=== PATIENT | male | born 1955 | race Caucasian/White ===

== ENCOUNTER 2021-12-13 17:51 | Outpatient (REF) | payer MEDICARE, OTHER, SELFPAY ==
[2021-12-13 18:30] LABS: Basophils Absolute Auto 0.04 K/uL (0.00-0.30); Basophils Percent Auto 0.6 % (0.0-3.0); Eosinophils Absolute Auto 0.13 K/uL (0.00-0.50); Eosinophils Percent Auto 2.1 % (0.0-7.0); Hematocrit 42.4 % (37.0-53.0); Hemoglobin* 14.3 gm/dL (13.5-17.5); Immature Granulocytes Abs Auto 0.02 K/uL (0.00-0.30); Lymphocytes Percent Auto 33.5 % (20-44); Mean Corpuscular HGB Conc 34 gm/dL (32-36); Mean Corpuscular Hemoglobin 32 pg (26-34); Mean Corpuscular Volume 95 fL (80-100); Monocytes Percent Auto 7.7 % (0.0-11.0); Neutrophils Absolute Auto 3.49 K/uL (1.7-7.0); Neutrophils Percent Auto 55.8 % (42.0-72.0); Platelet Count* 172 K/uL (140-440); Red Blood Count 4.47 m/uL (4.30-5.90); White Blood Count* 6.26 K/uL (4.50-11.00)
[2021-12-13 18:46] LABS: Slide Review Reflex No
[2021-12-13 18:48] LABS: Chloride* 109 mmol/L (96-114); Sodium* 140 mmol/L (135-149)
[2021-12-13 18:49] LABS: Potassium* 3.8 mmol/L (3.6-5.1)
[2021-12-13 18:51] LABS: Carbon Dioxide* 24 mmol/L (20-32); Creatinine* 0.8 mg/dL (0.5-1.5); Estimated Glomerular Filt Rate 98 ml/min
[2021-12-13 18:52] LABS: Blood Urea Nitrogen* 28 mg/dL (7-30); Calcium* 9.3 mg/dL (8.4-10.6); Glucose* 122 mg/dL (60-115)
[2021-12-13 18:57] LABS: C Reactive Protein* < 0.5 mg/dL (0.5-1.0)
[2021-12-13 19:19] LABS: Erythrocyte SedimentationRate* 7 mm/hr (2-15)
== END 2021-12-13 17:52 | disposition home or self-care (01) ==
LOC: LAB 17:51
PROVIDERS: PCP Family Medicine; Visit Provider Physician Assistant Surgical
DX: M25.471 Effusion, right ankle (principal)
CPT/HCPCS: 36415; 80048; 85025; 85651; 86140

== ENCOUNTER 2021-12-26 15:02 | Outpatient (CLI) | payer MEDICARE, OTHER, SELFPAY ==
[2021-12-26 17:28] LABS: Chloride* 102 mmol/L (96-114)
[2021-12-26 17:29] LABS: Potassium* 4.4 mmol/L (3.6-5.1); Sodium* 137 mmol/L (135-149)
[2021-12-26 17:31] LABS: Cholesterol* 244 mg/dL (90-199); Creatinine* 0.8 mg/dL (0.5-1.5); Estimated Glomerular Filt Rate 98 ml/min
[2021-12-26 17:32] LABS: Blood Urea Nitrogen* 22 mg/dL (7-30); Calcium* 10.1 mg/dL (8.4-10.6); Carbon Dioxide* 26 mmol/L (20-32); Glucose* 101 mg/dL (60-115); Triglycerides* 175 mg/dL (40-149)
[2021-12-26 17:33] LABS: HDL Cholesterol* 73 mg/dL (>=40); LDL Cholesterol Calculated 136 mg/dL (<100)
[2021-12-26 18:03] LABS: PSA Screen* 0.99 ng/mL (0.10-4.00)
== END 2021-12-26 15:03 | disposition home or self-care (01) ==
PROVIDERS: PCP Family Medicine; Visit Provider Family Medicine
DX: L40.9 Psoriasis, unspecified (principal); Z12.5 Encounter for screening for malignant neoplasm of prostate; Z13.6 Encounter for screening for cardiovascular disorders; Z13.1 Encounter for screening for diabetes mellitus
CPT/HCPCS: 80048; 80061; 84153

== ENCOUNTER 2022-01-17 14:15 | Outpatient (RCR) | payer MEDICARE, OTHER, SELFPAY ==
--- NOTE | 2022-01-11 15:24 | PT.OPEX ---
[facility] [place] [facility] PT [facility] Eval Start: 01/10/22 15:35 Freq: Status: Active Protocol: Document 01/10/22 15:36 CHRISTINA (Rec: 01/10/22 15:38 CHRISTINA [id number]) E-signed By Rommel Inman DPT, MS Physical Therapy Outpatient Evaluation Insurance Information Recert Due Date 04/10/22 Insurance Name Medicare B,Other; See Comments Insurance Information/Comments [employer] Medical Diagnosis Unspecified disorder of synovium and tendon, unspecified site; Unspecified injury of muscle and tendon of peroneal muscle group at lower leg level, initial encounter. Treating Diagnosis R ankle pain, decreased R ankle ROM, decreased R LE flexibility, imbalance, gait dysfunction, and R LE weakness Subjective Subjective Pt reports to PT with c/o chronic R lateral ankle pain, swelling and instability following multiple eversion sprains over the past 10-15 years. Experienced significant increase in posterior, lateral ankle swelling a few weeks upon waking after a [place] in [place] where he rolled his ankle. Describes sxs as sharp aching at posterior, lateral R ankle that was getting progressively worse before being fitted for an ankle brace. Receiving custom foot orthotics later this week . PA believes his flattening of his R arch is contributing. Describes years of multiple injuries playing high school and recreation football and basketball with multiple ankle sprains. Complex PSH of 3 L TKA revisions with minimal sensation in his L LE. AGGR factors: uneven surfaces, extended walking, stair climbing, carrying objects, walking without shoes. ALLEV factors: rest, ice, ankle brace. 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 Pain Comments 2-07/18 Current Work Status Care Rep Occupation [employer] Preferred Name Lorenzo Precautions Weight Bearing Status Full Weight Bearing Therapy Limitations/Systems Review Not Limited Objective Functional Test Performed & Score FAAM: 64 PLOF: 75% Assessment Assessment/Impression Lorenzo is a 66 y.o. male who displays signs and symptoms of R peroneal tendinopathy. Objectively pt displays decreased R LE flexibility, R LE weakness, imbalance, and gait dysfunction. Significant R peroneal and gastroc weakness found with testing. R pes planus with navicular drop contributing to sxs and pt encouraged to continue wearing shoes throughout the day. He responded very well to stretching and R LE strengthening exercises with fatigue and minimal sxs following today?s session. He would benefit from continued skilled therapy to address these limitations. Plan of Care Rehabilitation Potential Good Rehabilitation Potential Comments Due to chronic nature of sxs Physical Therapy Goals Long-term goals to be completed in 10 weeks: 1. Pt will be independent and compliant with HEP 2. Pt will display improved SLS on firm surfaces with minimal sway to decrease falls risk. 3. Pt will display improved R hip ABD, ext, inversion and eversion strength >/=4+/5 improve quality of gait and decrease risk of further ankle sprains. 4. Pt will report >50% improvement in FAAM questionnaire to significantly improve brandan to functional activities. Coordination/Communication With Referral Source Treatment Plan/Direct Interventions Joint Mobilization,Manual Therapy,Neuromuscular Re-ed, Therapeutic Exercises Frequency/Duration 1x per week for at least 6-10 visits, decreasing visit frequency as able. Patient Will Be Discharged From Therapy Completion of LTG(s),Skills Plateau,Independent w/HEP, Independently Progressing Evaluation Billing Untimed Code Treatment Minutes 26 Complexity Moderate Certification Information Initial Certification Date 01/10/22 Ending Certification Date 04/10/22 Provider Signature Shows Agreement With POC & Medical Necessity Physician Signature & Date Requested Please Sign/Date Here Physician Comment/Change : Physician NPI Number #
== END 2022-09-27 23:59 | disposition home or self-care (01) ==
PROVIDERS: PCP Family Medicine; Visit Provider Physician Assistant Surgical
DX: M25.571 Pain in right ankle and joints of right foot (principal); Z51.89 Encounter for other specified aftercare
CPT/HCPCS: 97110; 97162

== ENCOUNTER 2024-02-17 09:30 | Outpatient (CLI) | payer MEDICARE, OTHER, SELFPAY | END 2024-02-17 09:31 | disposition home or self-care (01) | PROVIDERS: PCP Family Medicine; Visit Provider Family Medicine | DX: E78.5 Hyperlipidemia, unspecified (principal); R35.1 Nocturia; Z13.6 Encounter for screening for cardiovascular disorders; Z13.1 Encounter for screening for diabetes mellitus; Z12.5 Encounter for screening for malignant neoplasm of prostate; Z13.21 Encounter for screening for nutritional disorder | CPT/HCPCS: 80048; 80061; 82607; G0103 ==